=== PATIENT | female | born 1935 | race Caucasian/White ===

== ENCOUNTER → 2017-09-06 | Outpatient (CLI) | payer OTHER | LOC: RAD 11:40 | DX: J63.2 Berylliosis (principal) ==

== ENCOUNTER → 2019-02-25 | Outpatient (CLI) | payer OTHER | LOC: RAD 15:08 | DX: J63.2 Berylliosis (principal); Z88.8 Allergy status to other drugs, medicaments and biological substances; Z88.0 Allergy status to penicillin ==

== ENCOUNTER → 2020-03-11 | Outpatient (CLI) | payer OTHER | LOC: RAD 12:15 | PROVIDERS: ATTEND Internal Medicine | DX: I77.810 Thoracic aortic ectasia (principal) ==

== ENCOUNTER → 2020-09-11 | Outpatient (CLI) | payer OTHER | LOC: LAB 10:57 | PROVIDERS: ATTEND Pediatrics | DX: Z20.822 Contact with and (suspected) exposure to COVID-19 (principal) ==

== ENCOUNTER → 2020-09-18 | Outpatient (CLI) | payer OTHER ==
--- NOTE | 2020-09-24 17:31 | PFR/MVV ---
[facility] [place] [address] PULMONARY FUNCTION MVV/REPORT Name: MARÍA ELENA MCGREGOR Room #: [facility] Blu.#: [id number] Admission: 09/18/20 Attend Phys: Jaxson Swann MD Discharge: Date of : 39 Report #: [id number] THIS REPORT FOR: //name// >> SPIROMETRY: (BTPS) Height: 65 in cm Weight: 173 lbs kg Exam Date: 09/18/20 PRE-RX POST-RX PRED BEST %PRED BEST %PRED %CHG FVC LITERS . 2.63 . 1.97 . 75 . 2.01 . 76 . 2 FEV1 LITERS . 1.78 . 1.45 . 82 . 1.47 . 83 . 2 FEV1/FVC % . 69 . 74 . 107 . 73 . 106 . -1 NIP96-03% L/Sec . 1.96 . 1.07 . 55 . 1.11 . 57 . 4 PEF L/SEC . 5.28 . 3.54 . 67 . 3.45 . 65 . -2 FEF50/FIF50 UNITLESS . <1.00 . 1.67 . . 2.03 . . 21 MVV L/Min . . . f 1/Min . . . >> LUNG VOLUMES: (BTPS) PRE-RX POST-RX PRED AVG %PRED AVG %PRED %CHG VC Liters . 2.63 . 2.08 . 79 . . . TLC Liters . 4.91 . 3.64 . 74 . . . RV Liters . 2.13 . 1.56 . 73 . . . RV/TLC % . 44 . 43 . 98 . . . FRC PL Liters . 2.70 . 1.67 . 62 . . . FRC N2 Liters . 2.70 . . . . . ERV Liters . 0.90 . 0.11 . 12 . . . IC Liters . 1.79 . 1.98 . 110 . . . >> DIFFUSION: DLCO ml/Min/mmHg . 19.6 . 10.4 . 53 . . . DL Jenny ml/Min/mmHg . 19.6 . 10.4 . 53 . . . DLCO/VA ml/Min/mmHg . 3.18 . 4.74 . 149 . . . VA Liters . . 2.20 . . . . COMMENTS: COMMENTS: >> RESISTANCE: [facility] [address] [place] [address] PULMONARY FUNCTION MVV/REPORT Name: MARÍA ELENA MCGREGOR Room #: [facility].#: [id number] Admission: 09/18/20 Attend Phys: Jaxson Swann MD Discharge: Date of : 39 Report #: [id number] PRE-RX PRED AVG %PRED Raw Total cmH20/L/Sec . . 9.10 . Raw Insp cmH20/L/Sec . . 9.78 . Raw Exp cmH20/L/Sec . . 9.81 . Raw cmH20/L/Sec . 1.42 . 8.68 . 612 Gaw L/Sec/cmH20 . 0.648 . 0.115 . 18 sRaw cmH20 Sec . 3.83 . 22.63 . 590 sGaw l/cmH20 Sec . 0.261 . 0.044 . 17 Vtq Liters . . 2.61 . # = OUTSIDE 95% CONFIDENCE INTERVAL CALIBRATION: PRED: 3.00 ACTUAL: EXP 3.01 INSP 3.02 [facility]06 [facility] N-1804-4 >> INTERPRETATION/IMPRESSION: DATE OF SERVICE: 09/22/2020 FINDINGS: Spirometric examination revealed mildly decreased flows. There was no significant bronchodilator response. Lung volumes are slightly decreased. Diffusion capacity is moderately decreased, but normal when corrected for alveolar volume. Flow volume loop is grossly normal. IMPRESSION: Mild restrictive ventilatory defect. Diffusion capacity is reduced. Clinical correlation is recommended. <ELECTRONICALLY SIGNED> By: Juan Lara MD 09/24/20 1731 Juan Lara MD /nt
== END ==
LOC: CAT 07-20 11:54
PROVIDERS: ATTEND Internal Medicine
DX: J84.10 Pulmonary fibrosis, unspecified (principal); J98.4 Other disorders of lung; I77.810 Thoracic aortic ectasia; I51.7 Cardiomegaly; I25.10 Atherosclerotic heart disease of native coronary artery without angina pectoris; J63.2 Berylliosis; M47.814 Spondylosis without myelopathy or radiculopathy, thoracic region; Z77.018 Contact with and (suspected) exposure to other hazardous metals

== ENCOUNTER → 2021-05-10 | Outpatient (CLI) | payer OTHER | LOC: PUL 12:38 | PROVIDERS: ATTEND Internal Medicine | DX: R06.02 Shortness of breath (principal); J63.2 Berylliosis; Z20.822 Contact with and (suspected) exposure to COVID-19 ==